=== PATIENT | male | born 1955 | race Caucasian/White ===

== ENCOUNTER → 2022-10-07 13:26 | Outpatient (CLI) | payer BC, MEDICARE, SELFPAY ==
--- NOTE | ~2022-10-07 | CT_ITS ---
Clinical Indication: Solitary pulmonary nodule CT Scan of the Chest with Contrast: Technique: Contiguous sections were acquired throughout the chest after intravenous administration of 75 cc of Omnipaque 350. Dose reduction technique was used on this scan by utilizing automated exposu re control and iterative reconstruction technique. The dose-length product (DLP) was 248.89 mGy-cm. Findings: Borderline enlarged precarinal lymph node measures 11 mm in short axis. No large central pulmonary em bolus. There is no evidence of aortic dissection or aneurysm. Coronary artery calcifications are pres ent. There are atherosclerotic calcifications of the aorta. There is no evidence of pleural or pericardial effusion. There is an irregular, somewhat ovoid area of somewhat masslike consolidation in the right upper lobe measuring approximately 6.0 x 2.4 cm in transverse dimensions, with additional surrounding airspace opacity (axial image 42 for example). This density extends back towards the right hilum. Several smal l scattered calcified granulomas are noted in the lungs. Images through the upper abdomen reveal no abnormalities. Impression: 6.0 x 2.4 cm area somewhat masslike consolidation right upper lobe. Diagnostic considerations include pneumonia versus neoplasm. Correlate with patient's symptomatology. Consider tissue sampling versus short-term follow-up CT in one month following appropriate interval therapy. Single borderline enlarged precarinal lymph node, nonspecific. Evidence of prior granulomatous disease. Reviewed, dictated and finalized at [facility]. Impression: 6.0 x 2.4 cm area somewhat masslike consolidation right upper lobe. Diagnostic considerations include pneumonia versus neoplasm. Correlate with patient's symp tomatology. Consider tissue sampling versus short-term follow-up CT in one mj h following appropriate interval therapy. Single borderline enlarged precarinal lymph node, nonspecific. Evidence of prior granulomatous disease.
[2022-10-07 13:56] LABS: Estimated Glomerular Filt Rate > 60
== END ==
PROVIDERS: PCP Nurse Practitioner; Visit Provider Internal Medicine Pulmonary Disease
DX: R93.89 Abnormal findings on diagnostic imaging of other specified body structures (principal)
CPT/HCPCS: 71260; Q9967